=== PATIENT | female | born 1975 | race African-American/Black ===

== ENCOUNTER 2016-04-04 19:13 | Inpatient (IN) | payer MEDICAID ==
[~2016-04-04] VITALS: Ht 170.2 cm; Wt 69.1 kg
[~2016-04-04 19:13] MED LIST: NOCURR
[2016-04-04 20:00] LABS: HEMATOCRIT 36.2 % (36-46); HEMOGLOBIN 11.8 g/dL (12.0-16.0); MEAN CORPUSCULAR HEMOGLOBIN 20.9 pg (26.0-34.0); MEAN CORPUSCULAR HGB CONC 32.6 G/dL (31.0-37.0); MEAN CORPUSCULAR VOLUME 64 fL (80-100); PLATELET COUNT (AUTO) 300 K/uL (150-450); RED BLOOD CELL COUNT(AUTO) 5.66 MIL/uL (4.00-5.20); RED CELL DISTRIBUTION WIDTH 23.9 % (11.5-14.5); WHITE BLOOD COUNT (AUTO) 5.7 K/uL (4.5-11.0)
[2016-04-04 20:16] LABS: ANION GAP 6 mmol/L (8-16); CALCIUM, TOTAL 8.8 mg/dL (8.8-10.5); CARBON DIOXIDE 30 mmol/L (22-29); CHLORIDE 100 mmol/L (98-107); CREATININE 0.86 mg/dL (0.60-1.30); GLOMERULAR FILTR. RATE CALC > 60 mL/min (>60); POTASSIUM 3.7 mmol/L (3.5-5.1); SODIUM SERUM 136 mmol/L (136-145); UREA NITROGEN, BLOOD 17 mg/dL (7-18)
[2016-04-04 20:19] LABS: ALANINE AMINOTRANSFERASE 27 U/L (12-78); ALBUMIN 3.7 g/dL (3.4-5.0); ASPARTATE AMINOTRANSFERASE 22 U/L (15-37); BILIRUBIN,TOTAL 0.2 mg/dL (0.1-1.0); TOTAL PROTEIN, SERUM 7.9 g/dL (6.4-8.2)
[2016-04-04 20:29] LABS: BAND NEUTROPHILS % (MANUAL) 1 % (1-5); LYMPHOCYTES % (MANUAL) 37 % (22-44); TOTAL CELLS COUNTED 100
[2016-04-04 20:31] LABS: RBC MORPHOLOGY COMMENT ABNORMAL RBC MORPH
[2016-04-04] MEDS ORDERED: ZOLPIDEM TARTRATE 10 MG TABLET PO PRN (20:45)
[2016-04-04] MEDS ORDERED: HALOPERIDOL 5 MG TABLET PO PRN (20:45)
[2016-04-04] MEDS ORDERED: ACETAMINOPHEN 325 MG TABLET PO PRN (22:00)
[2016-04-04] MEDS ORDERED: IBUPROFEN 400 MG TABLET PO PRN (22:00)
[2016-04-04] MEDS ORDERED: ALBUTEROL SULFATE HFA 90 MCG/PUFF 8 GM INHALER IH PRN (22:00)
[2016-04-04] MEDS ORDERED: PNEUMOCOCCAL VACCINE POLYVALENT 0.5 ML VIAL [PPSV23] IM ONE (23:45)
[2016-04-04] MEDS ORDERED: INFLUENZA VIRUS VACCINE QVS 2016-17 (3YR+)/PF 60 MCG/0.5 ML SYRINGE IM ONE (23:45)
[2016-04-05 00:01] VITALS: BP 114/63
[2016-04-05] MEDS: LORazepam 2 MG TABLET PO PRN (00:04)
[2016-04-05 06:46] LABS: GLUCOSE,POINT OF CARE 98 MG/DL (70-110)
[2016-04-05 08:44] VITALS: BP 115/60
[2016-04-05 08:48] LABS: HEMOGLOBIN A1C 6.1 % (4.5-6.2)
[2016-04-05 09:37] LABS: CHOL/HDL RATIO 1.9 (3.9-5.7); THYROID STIMULATING HORMONE 2.7 uIU/mL (0.36-3.74)
[2016-04-05 17:29] VITALS: BP 111/65
[2016-04-06 06:43] VITALS: BP 103/51
[2016-04-06 08:23] VITALS: BP 120/60
[2016-04-06] MEDS: LORazepam 2 MG TABLET PO PRN (12:03)
[2016-04-06 16:01] VITALS: BP 123/61
[2016-04-06] MEDS: RisperiDONE 0.5 MG TABLET PO SCH (16:36)
[2016-04-07 00:53] VITALS: BP 110/63
[2016-04-07] MEDS: LORazepam 2 MG TABLET PO PRN ×2 (05:10→14:25)
[2016-04-07 08:14] VITALS: BP 122/81
[2016-04-07] MEDS: RisperiDONE 0.5 MG TABLET PO SCH ×2 (09:40→16:47)
[2016-04-07] MEDS: CITALOPRAM HYDROBROMIDE 20 MG TABLET PO SCH (09:40)
[2016-04-07 16:14] VITALS: BP 114/69
[2016-04-08 00:40] VITALS: BP 110/63
[2016-04-08] MEDS: RisperiDONE 0.5 MG TABLET PO SCH ×3 (09:00→16:22)
[2016-04-08] MEDS: CITALOPRAM HYDROBROMIDE 20 MG TABLET PO SCH ×2 (09:00→09:50)
[2016-04-09] MEDS: LORazepam 2 MG TABLET PO PRN ×2 (03:28→10:45)
[2016-04-09 03:30] VITALS: BP 114/73
[2016-04-09] MEDS: RisperiDONE 0.5 MG TABLET PO SCH (08:43)
[2016-04-09] MEDS: CITALOPRAM HYDROBROMIDE 20 MG TABLET PO SCH (08:43)
[2016-04-09 09:04] VITALS: BP 102/61
[2016-04-09] MEDS ORDERED: RISP.5 PO (10:47)
[2016-04-09] MEDS ORDERED: CITA20TA9 PO (10:47)
== END 2016-04-09 13:45 | disposition home or self-care (01) | DRG 750 ==
LOC: EMS 19:14 → B2S 20:25
PROVIDERS: ADMIT Psychiatry & Neurology Psychiatry; ATTEND Psychiatry & Neurology Psychiatry
DX: F25.9 Schizoaffective disorder, unspecified (principal); R45.851 Suicidal ideations; E11.9 Type 2 diabetes mellitus without complications; F32.9 Major depressive disorder, single episode, unspecified; F41.9 Anxiety disorder, unspecified; F17.210 Nicotine dependence, cigarettes, uncomplicated; F15.10 Other stimulant abuse, uncomplicated; F12.10 Cannabis abuse, uncomplicated; F10.10 Alcohol abuse, uncomplicated; Z71.51 Drug abuse counseling and surveillance of drug abuser; Z71.41 Alcohol abuse counseling and surveillance of alcoholic; Z71.6 Tobacco abuse counseling; Z28.21 Immunization not carried out because of patient refusal
CPT/HCPCS: 82962; 83036; 84443; 99285; A0429; G0480

== ENCOUNTER 2017-04-05 14:51 | Emergency (ER) | payer MEDICAID ==
[~2017-04-05] VITALS: Ht 170.2 cm; Wt 72.7 kg
[~2017-04-05 14:51] MED LIST changes: +CITA20TA9 PO; -NOCURR; +RISP.5 PO
[2017-04-05 16:09] VITALS: BP 129/72
[2017-04-05] MEDS ORDERED: BACITRACIN 0.9 GM PACKET OINTMENT TP ONE (16:30)
[2017-04-05] MEDS ORDERED: CEPHALEXIN MONOHYDRATE 500 MG CAPSULE PO ONE (16:30)
[2017-04-05] MEDS ORDERED: IBUPROFEN 800 MG TABLET PO ONE (16:30)
== END 2017-04-05 16:36 | disposition left against medical advice (07) ==
LOC: EMS 14:52
DX: S21.239A Puncture wound without foreign body of unspecified back wall of thorax without penetration into thoracic cavity, initial encounter (principal); E11.9 Type 2 diabetes mellitus without complications; F32.9 Major depressive disorder, single episode, unspecified; F41.9 Anxiety disorder, unspecified; F17.210 Nicotine dependence, cigarettes, uncomplicated; Z79.899 Other long term (current) drug therapy; X58.XXXA Exposure to other specified factors, initial encounter; Y93.89 Activity, other specified; Y92.89 Other specified places as the place of occurrence of the external cause; Y99.8 Other external cause status
CPT/HCPCS: 99284

== ENCOUNTER 2018-12-09 22:35 | Emergency (ER) | payer SELFPAY ==
[~2018-12-09] VITALS: Ht 170.2 cm; Wt 72.7 kg
[~2018-12-09 22:35] MED LIST changes: +CITA-106 PO; -CITA20TA9 PO
[2018-12-10] MEDS ORDERED: AMOX TR/POT CLAV 875 MG/125 MG TABLET PO ONE (00:15)
[2018-12-10] MEDS ORDERED: PERTUSS(ACELL),DIPH,TET VAC/PF 0.5 ML VIAL IM ONE (00:15)
[2018-12-10] MEDS ORDERED: ACETAMINOPHEN 500 MG TABLET PO ONE (00:15)
[2018-12-10 03:12] VITALS: BP 106/62
== END 2018-12-10 03:10 | disposition home or self-care (01) ==
LOC: EMS 22:36
DX: S03.2XXA Dislocation of tooth, initial encounter (principal); M25.562 Pain in left knee; F32.9 Major depressive disorder, single episode, unspecified; F41.9 Anxiety disorder, unspecified; F12.90 Cannabis use, unspecified, uncomplicated; F17.210 Nicotine dependence, cigarettes, uncomplicated; Y04.0XXA Assault by unarmed brawl or fight, initial encounter; Y93.89 Activity, other specified; Y92.89 Other specified places as the place of occurrence of the external cause; Y99.8 Other external cause status
CPT/HCPCS: 29505; 29515; 70450; 70486; 72125; 90715; 99406